=== PATIENT | male | born 1960 | race Caucasian/White ===

== ENCOUNTER 2019-05-07 16:49 | Outpatient (REF) | payer OTHER, SELFPAY ==
[2019-05-07 21:23] LABS: Anion Gap 15.1 mmol/L (3-11); BUN 16 mg/dL (7-18); CO2 24.9 mmol/L (21.0-32.0); CREATININE 1.22 mg/dL (0.70-1.30); Calcium 8.8 mg/dL (8.5-10.1); Calculated LDL 98 mg/dL (<100); Chloride 101 mmol/L (98-107); Cholesterol 196 mg/dL (<200); Glucose 111 mg/dL (74-106); HDL Cholesterol 27 mg/dL (40-60); Sodium 141 mmol/L (136-145); Triglyceride 356 mg/dL (<150)
== END 2019-05-07 17:09 ==
LOC: NCHCN 16:49
PROVIDERS: Visit Provider Internal Medicine
DX: E78.5 Hyperlipidemia, unspecified (principal); Z00.00 Encounter for general adult medical examination without abnormal findings
CPT/HCPCS: 80048; 80061

== ENCOUNTER 2019-09-25 08:17 | Outpatient (REF) | payer OTHER, SELFPAY ==
[2019-09-25 22:00] LABS: ALT 46 U/L (16-63); AST 22 U/L (15-37); Albumin 4.3 g/dL (3.4-5.0); Alkaline Phosphatase 107 U/L (46-116); Anion Gap 12.3 mmol/L (3-11); BUN 21 mg/dL (7-18); Bilirubin, Total 0.6 mg/dL (0.2-1.0); CO2 21.7 mmol/L (21.0-32.0); CREATININE 1.15 mg/dL (0.70-1.30); Calcium 9.2 mg/dL (8.5-10.1); Calculated LDL 91 mg/dL (<100); Chloride 105 mmol/L (98-107); Cholesterol 143 mg/dL (<200); Glucose 103 mg/dL (74-106); HDL Cholesterol 32 mg/dL (40-60); Potassium 4.6 mmol/L (3.5-5.1); Sodium 139 mmol/L (136-145); Total Protein 7.7 g/dL (6.4-8.2); Triglyceride 100 mg/dL (<150)
[2019-09-25 22:03] LABS: Hemoglobin A1C 5.2 % (3.8-5.6)
== END 2019-09-25 08:37 ==
LOC: NCHCN 08:17
PROVIDERS: PCP Internal Medicine; Visit Provider Internal Medicine
DX: E78.5 Hyperlipidemia, unspecified (principal); E11.9 Type 2 diabetes mellitus without complications
CPT/HCPCS: 80053; 80061; 83036

== ENCOUNTER → 2020-04-01 09:22 | Outpatient (REF) | payer OTHER, SELFPAY ==
[2020-04-01 14:16] LABS: Anion Gap 9.5 mmol/L (3-11); BUN 17 mg/dL (7-18); CO2 25.5 mmol/L (21.0-32.0); CREATININE 1.18 mg/dL (0.70-1.30); Calcium 8.8 mg/dL (8.5-10.1); Chloride 101 mmol/L (98-107); Glucose 93 mg/dL (74-106); Potassium 4.9 mmol/L (3.5-5.1); Sodium 136 mmol/L (136-145)
== END ==
LOC: NCHCN 09:22
PROVIDERS: PCP Internal Medicine; Visit Provider Nurse Practitioner Family
DX: E11.9 Type 2 diabetes mellitus without complications (principal); R03.0 Elevated blood-pressure reading, without diagnosis of hypertension
CPT/HCPCS: 80048

== ENCOUNTER → 2020-04-05 09:37 | Outpatient (REF) | payer OTHER, SELFPAY ==
[2020-04-05 14:23] LABS: COMMENT (LAB VIEW ONLY) 103.27 mg/dL; Microalb ug/mg Crea 4.1 ug/mg Cr
== END ==
LOC: NCHCN 09:37
PROVIDERS: PCP Internal Medicine; Visit Provider Nurse Practitioner Family
DX: E11.9 Type 2 diabetes mellitus without complications (principal)
CPT/HCPCS: 82043; 82570

== ENCOUNTER 2021-07-31 18:22 | Outpatient (REF) | payer OTHER, SELFPAY ==
[2021-07-31 15:48] LABS: ALT 57 U/L (16-63); AST 25 U/L (15-37); Albumin 4.1 g/dL (3.4-5.0); Alkaline Phosphatase 105 U/L (46-116); Anion Gap 9.3 mmol/L (3-11); BUN 18 mg/dL (7-18); Bilirubin, Total 0.5 mg/dL (0.2-1.0); CO2 26.7 mmol/L (21.0-32.0); CREATININE 1.2 mg/dL (0.70-1.30); Calcium 8.6 mg/dL (8.5-10.1); Calculated LDL 128 mg/dL (<100); Chloride 104 mmol/L (98-107); Cholesterol 193 mg/dL (<200); Glucose 114 mg/dL (74-106); HDL Cholesterol 30 mg/dL (40-60); Potassium 4.5 mmol/L (3.5-5.1); Sodium 140 mmol/L (136-145); Total Protein 7.3 g/dL (6.4-8.2); Triglyceride 175 mg/dL (<150)
[2021-07-31 15:54] LABS: COMMENT (LAB VIEW ONLY) 211.12 mg/dL; Microalb ug/mg Crea 8.9 ug/mg Cr
[2021-07-31 23:09] LABS: PSA, Screening 0.4 ng/mL (<=4.5)
== END 2021-07-31 18:23 | disposition home or self-care (01) ==
LOC: NCHCN 18:22
PROVIDERS: PCP Internal Medicine; Visit Provider Nurse Practitioner Family
DX: E11.9 Type 2 diabetes mellitus without complications (principal); I10 Essential (primary) hypertension; Z12.5 Encounter for screening for malignant neoplasm of prostate; E78.5 Hyperlipidemia, unspecified
CPT/HCPCS: 80053; 80061; 84153; 82043; 82570

== ENCOUNTER 2022-06-05 09:17 | Outpatient (REF) | payer BC, SELFPAY ==
[2022-06-05 15:00] LABS: Hemoglobin A1C 6.4 % (<5.7)
[2022-06-05 15:01] LABS: ALT 42 U/L (16-63); AST 23 U/L (15-37); Albumin 3.9 g/dL (3.4-5.0); Alkaline Phosphatase 94 U/L (46-116); Anion Gap 6.7 mmol/L (3-11); BUN 20 mg/dL (7-18); Bilirubin, Total 0.4 mg/dL (0.2-1.0); CO2 26.3 mmol/L (21.0-32.0); CREATININE 1.3 mg/dL (0.70-1.30); Calculated LDL 140 mg/dL (<100); Chloride 104 mmol/L (98-107); Cholesterol 207 mg/dL (<200); Estimated GFR 61.73 (mL/min/1.73m2); Glucose 146 mg/dL (74-106); HDL Cholesterol 36 mg/dL (40-60); Potassium 4.7 mmol/L (3.5-5.1); Sodium 137 mmol/L (136-145); Total Protein 7.6 g/dL (6.4-8.2); Triglyceride 155 mg/dL (<150)
== END 2022-06-05 09:18 | disposition home or self-care (01) ==
LOC: NCHCN 09:17
PROVIDERS: PCP Internal Medicine; Visit Provider Nurse Practitioner Family
DX: I10 Essential (primary) hypertension (principal); E78.5 Hyperlipidemia, unspecified; E11.9 Type 2 diabetes mellitus without complications
CPT/HCPCS: 80053; 80061; 83036

== ENCOUNTER 2023-01-10 10:17 | Outpatient (REF) | payer BC, SELFPAY ==
[2023-01-10 14:52] LABS: Hemoglobin A1C 5.5 % (<5.7)
[2023-01-10 14:53] LABS: Anion Gap 9.4 mmol/L (3-11); BUN 17 mg/dL (7-18); CO2 25.6 mmol/L (21.0-32.0); CREATININE 1.5 mg/dL (0.70-1.30); Calcium 9.9 mg/dL (8.5-10.1); Calculated LDL 88 mg/dL (<100); Chloride 103 mmol/L (98-107); Cholesterol 146 mg/dL (<200); Estimated GFR 51.67 (mL/min/1.73m2); Glucose 104 mg/dL (74-106); HDL Cholesterol 34 mg/dL (40-60); Potassium 4.8 mmol/L (3.5-5.1); Sodium 138 mmol/L (136-145); Triglyceride 121 mg/dL (<150)
[2023-01-11 08:50] LABS: Hepatitis C Ab w Rflx HCV PCR Negative (Negative)
[2023-01-11 10:39] LABS: HIV-1/2 Ag & Ab Screen Negative (Negative)
== END 2023-01-10 10:18 | disposition home or self-care (01) ==
LOC: NCHCN 10:17
PROVIDERS: PCP Internal Medicine; Visit Provider Nurse Practitioner Family
DX: Z00.00 Encounter for general adult medical examination without abnormal findings (principal)
CPT/HCPCS: 80048; 80061; 86803; 87389; 83036

== ENCOUNTER 2023-07-16 10:57 | Outpatient (REF) | payer BC, SELFPAY ==
[2023-07-16 16:13] LABS: COMMENT (LAB VIEW ONLY) 131.88 mg/dL; Microalb ug/mg Crea 4.8 ug/mg Cr
== END 2023-07-16 10:58 | disposition home or self-care (01) ==
LOC: NCHCN 10:57
PROVIDERS: PCP Internal Medicine; Visit Provider Nurse Practitioner Family
DX: E11.9 Type 2 diabetes mellitus without complications (principal)
CPT/HCPCS: 82043; 82570

== ENCOUNTER 2024-03-30 12:17 | Outpatient (REF) | payer OTHER, SELFPAY ==
[2024-03-30 15:30] LABS: ALT 47 U/L (16-63); AST 27 U/L (15-37); Albumin 3.6 g/dL (3.4-5.0); Alkaline Phosphatase 105 U/L (46-116); Anion Gap 11.2 mmol/L (3-11); BUN 20 mg/dL (7-18); Bilirubin, Total 0.54 mg/dL (0.2-1.0); CO2 21.8 mmol/L (21.0-32.0); CREATININE 1.4 mg/dL (0.70-1.30); Calcium 8.7 mg/dL (8.5-10.1); Calculated LDL 73 mg/dL (<100); Chloride 106 mmol/L (98-107); Cholesterol 128 mg/dL (<200); Estimated GFR 55.78 (mL/min/1.73m2); Glucose 128 mg/dL (74-106); HDL Cholesterol 34 mg/dL (40-60); Potassium 4.3 mmol/L (3.5-5.1); Sodium 139 mmol/L (136-145); Total Protein 7.6 g/dL (6.4-8.2); Triglyceride 105 mg/dL (<150)
== END 2024-03-30 12:18 | disposition home or self-care (01) ==
LOC: NCHCN 12:17
PROVIDERS: PCP Internal Medicine; Visit Provider Nurse Practitioner Family
DX: I10 Essential (primary) hypertension (principal); E78.5 Hyperlipidemia, unspecified; E11.9 Type 2 diabetes mellitus without complications
CPT/HCPCS: 80053; 80061; 83036